=== PATIENT | male | born 1960 | race Caucasian/White ===

== ENCOUNTER 2017-11-28 07:32 | Day surgery (SDC) | payer OTHER ==
[2017-11-28] MEDS ORDERED: DIPHENHYDRAMINE HCL 50 MG/ML VIAL ONE (07:38)
[2017-11-28] MEDS ORDERED: ONDANSETRON HCL INJ/PF 4 MG/2 ML SDV ONE (07:38)
[2017-11-28] MEDS ORDERED: NALOXONE HCL INJ/PF 0.4 MG/1 ML SDV ONE (07:39)
[2017-11-28] MEDS ORDERED: GLUCAGON,HUMAN RECOMB 1 MG INJ ONE (07:40)
[2017-11-28] MEDS ORDERED: EPINEPHRINE INJ 1 MG/10 ML DISP.SYRIN ONE (07:40)
[2017-11-28] MEDS ORDERED: FLUMAZENIL INJ 0.5 MG/5 ML VIAL ONE (07:40)
[2017-11-28] MEDS: MIDAZOLAM 2 MG/2 ML INJ ONE ×3 (08:13→08:21)
[2017-11-28] MEDS: FENTANYL CITRATE INJ/PF 100 MCG/2 ML AMPUL ONE ×3 (08:15→08:28)
--- NOTE | 2017-11-28 08:41 | Operative Report ---
Operative Report DATE OF SURGERY: 11/28/17 Operative Report: The risks, benefits and alternatives of the procedure including risks of bleeding, perforation requiring surgery are explained to the patient in detail and informed consent is obtained. Patient is brought back to the endoscopy suite and placed in a left, lateral decubital position. Timeout was called. Conscious sedation medications administered. A rectal examination is done which did not reveal any masses, tears or fissures. An Olympus videoscope was inserted into the patient's rectum. It is carefully advanced all the way to the cecum. Cecum was identified by the usual anatomical landmarks including the ileocecal valve as well as the appendiceal office. Photodocumentation is obtained. The scope was then sequentially pulled back via the various segments of the colon including the ascending colon, hepatic flexure, transverse colon, splenic flexure, descending colon finally in to the rectosigmoid portions of the colon. Retroflexion maneuvers performed. PREOPERATIVE DIAGNOSIS: Colorectal cancer screening POSTOPERATIVE DIAGNOSIS: Hepatic flexure polyp that is removed via biopsy forceps. Diverticulosis. Internal hemorrhoids OPERATION: Colonoscopy with biopsy SURGEON: JASKARAN PICKETT ANESTHESIA: Moderate Sedation - 4 mg of Versed, 125 mcg of fentanyl. Conscious sedation monitoring time 30 minutes. TISSUE REMOVED OR ALTERED: As noted above. COMPLICATIONS: None. ESTIMATED BLOOD LOSS: None. INTRAOPERATIVE FINDINGS: As noted above. PROCEDURE: Patient tolerated procedure well. No immediate postprocedure complications are noted. Patient discharged in good condition. Discharge date 11/28/2017. Discharge diet: Regular. Discharge activity: Regular. 2 to week follow-up to discuss findings. Patient is instructed call the office or proceed to emergency room should there be any further problems or questions. 5 year surveillance colonoscopy.
[2017-11-28 09:38] VITALS: BP 116/77
== END 2017-11-28 09:40 | disposition home or self-care (01) ==
LOC: END 07:32
PROVIDERS: ATTEND Internal Medicine Gastroenterology
PROC: 0DBL8ZX Excision of Transverse Colon, Via Natural or Artificial Opening Endoscopic, Diagnostic (ICD-10-PCS; principal; 2017-11-28 08:00)
DX: Z12.11 Encounter for screening for malignant neoplasm of colon (principal); K63.5 Polyp of colon; K57.30 Diverticulosis of large intestine without perforation or abscess without bleeding; K64.8 Other hemorrhoids; M19.90 Unspecified osteoarthritis, unspecified site
CPT/HCPCS: 45380; 88305 ×2; J2250; J3010; J0171; J1200; J1610; J2310; J2405; J3490